=== PATIENT | male | born 1955 | race Caucasian/White ===

== ENCOUNTER 2017-04-07 06:30 | Inpatient (IN) | payer OTHER ==
--- NOTE | 2017-04-06 09:59 | GHP ---
[f rep st] PREOP HISTORY AND PHYSICAL DATE OF ADMISSION: 04/07/2017 PROBLEM: Left knee arthritis. HISTORY OF PRESENT ILLNESS: The patient is a 62-year-old man admitted for a left total knee arthropl asty. Over the last few years, he has had progressive pain, primarily on the medial aspect of his le ft knee. I have done 3 arthroscopic procedures on his left knee. He had 1 additional arthroscopic p rocedure before I started taking care of him. He has also tried viscosupplementation injections in t he left knee. He is now having sufficient pain and insufficient limitation of activity and function that he wants to go ahead with a left total knee arthroplasty. PAST MEDICAL HISTORY: Overall, he is in very good health. He has mild psoriasis. Six or 7 years ag o he underwent a cardiac ablation for atrial fibrillation. No history of DVT, hepatitis, sleep apnea or bleeding problems. CURRENT MEDICATIONS: One full-size aspirin per day. DRUG ALLERGIES: None. METAL ALLERGY: None. LATEX ALLERGY: Yes. SOCIAL HISTORY: The patient is retired. He does not smoke cigarettes. Occasionally drinks alcohol. He is single. FAMILY HISTORY: Positive for arthritis and cancer. PHYSICAL EXAMINATION: GENERAL: He is a healthy-appearing man. Height 6 feet 1 inch. Weight 174 po unds. BMI 23. EYES: Conjunctivae and sclerae are clear. Pupils are round and reactive. MOUTH: G ood oral hygiene. No loose teeth. CHEST: Clear. HEART: Regular rhythm. No murmurs. EXTREMITIES : Pertinent findings are limited to his left knee. He has a small effusion. Full extension and 120 degrees of flexion. He is tender along the medial joint line. He has mild pseudolaxity of his medi al collateral ligament. IMAGING: His films show advanced medial compartment degenerative arthritis in his left knee. He is tesn-[id number]. Mild degenerative changes are present in the lateral compartment and patellofemoral emmanuelle int. Varus alignment is present. IMPRESSION ON ADMISSION: 1. Left knee advanced medial compartment degenerative arthritis with varus deformity. 2. Treatment for psoriasis. 3. History of cardiac ablation for atrial fibrillation. 4. Right hip mild degenerative arthritis. PLAN: He will undergo a left total knee arthroplasty. The surgery has been described to him, includ ing the risks, complications, expectations and recovery time. I have stressed the importance of post operative physical therapy. He understands that a small percentage of people do not get a good resul t with a total knee replacement. He wishes to be an outpatient at [facility]. All h is questions have been answered, and he consents to surgery. /[id number]/MODL
[~2017-04-07 06:30] MED LIST: NS IV ONE; POVIDONE-IODINE 20 ML in SODIUM CL IRRIG SOLUTION 500 ML IRR ONE; ROPIVACAINE 0.2% 80 MG, EPINEPHrine 0.2 MG, KETOROLAC TROMETHAMINE 30 MG in BAG 0 ML IU ONE; TRANEXAMIC ACID 1 MG in NS 100 ML IV ONE; TRANEXAMIC ACID IV ONE
[2017-04-07] MEDS ORDERED: FAMOTIDINE 20 MG TAB PO ONE (06:50)
[2017-04-07] MEDS ORDERED: DEXAMETHASONE 4 MG/ML VIAL IVP ONE (06:50)
[2017-04-07] MEDS ORDERED: ceFAZolin 2 GM/SWFI 2 GM/20 ML SYR IVP ONE (06:50)
[2017-04-07] MEDS ORDERED: ACETAMINOPHEN 325 MG TAB PO ONE (06:50)
[2017-04-07] MEDS ORDERED: LR 1,000 ML IV ONE (06:56)
[2017-04-07] MEDS ORDERED: LIDOCAINE 1% 2 ML INJ ID PRN (06:56)
[2017-04-07] MEDS ORDERED: MIDAZOLAM 2 MG/2 ML VIAL IVP ONE (07:44)
[2017-04-07] MEDS ORDERED: ceFAZolin 1 GM/5 ML SYR ONE (07:46)
[2017-04-07] MEDS ORDERED: VANCOMYCIN 1 GM VIAL ONE (07:46)
--- NOTE | 2017-04-07 07:47 | PDANEPAE ---
ANE History of Present Illness djd L knee, s/f L TKA, potentially as an outpatient ANE Past Medical History - Cardiovascular History Hx Hypertension: No Hx Arrhythmias: Yes Hx Chest Pain: No Hx Coronary Artery / Peripheral Vascular Disease: No Hx CHF / Valvular Disease: No Hx Palpitations: Yes Cardiovascular History Comment: A flutter, ablation 2010. occasional flutter - Pulmonary History Hx COPD: No Hx Asthma/Reactive Airway Disease: No Hx Recent Upper Respiratory Infection: No Hx Oxygen in Use at Home: No Hx Sleep Apnea: No Sleep Apnea Screening Result - Last Documented: Negative - Neurologic History Hx Cerebrovascular Accident: No Hx Seizures: No Hx Dementia: No - Endocrine History Hx Diabetes: No - Renal History Hx Renal Disorders: No - Liver History Hx Hepatic Disorders: No - Neurological & Psychiatric Hx Hx Neurological and Psychiatric Disorders: No - Cancer History Hx Cancer: Yes Cancer History Comment: testicular, orchiectomy - Congenital Disorder History Hx Congenital Disorders: No - GI History Hx Gastrointestinal Disorders: No - Other Health History Other Health History: psoriasis flares up in winter - Chronic Pain History Chronic Pain: Yes (R hip) - Surgical History Prior Surgeries: R HIP IMPINGMENT X 2 FEB 2013. L KNEE CARTILeDGE REPAIR 2012. 2014 L KNEE CARTILEDGE REPAIR. 2014 EGD. 2014 L SHOULDER REPAIR. 2016 L KNEE CARTILEDGE REPAIR. 2016 COLONOSCOPY ANE Review of Systems Review of Systems: - Exercise capacity METS (RN): 4 METS ANE Patient History - Allergies Allergies/Adverse Reactions: latex Allergy (Verified 03/16/17 13:37) - Home Medications Home medications: home medication list seen and reviewed Home Medications: Aspirin [Aspirin 325 mg (*)] 325 mg PO DAILY 03/16/17 [Last Taken 03/30/17] Multivitamins [Multivitamin (*)] 1 each PO DAILY 03/16/17 [Last Taken 03/30/17] - NPO status NPO Status: no food or drink >8 hours NPO Since - Liquids (Date): 04/06/17 NPO Since - Liquids (Time): 19:00 NPO Since - Solids (Date): 04/06/17 NPO Since - Solids (Time): 19:00 - Anes Hx Anes Hx: no prior problems - Smoking Hx Smoking Status: Never smoked - Alcohol Use Alcohol Use: Occasionally - Family Anes Hx Family Anes Hx: none Family Hx Anesthesia Complications: none ANE Labs/Vital Signs - Labs - CBC WBC: reviewed and okay - Vital Signs Blood Pressure: 118/82 Heart Rate: 54 Respiratory Rate: 16 O2 Sat (%): 95 Height: 185.42 cm Weight: 83.007 kg ANE Physical Exam - Airway Mallampati Score: Class 1 Mouth exam: normal dental/mouth exam - Pulmonary Pulmonary: no respiratory distress - Cardiovascular Cardiovascular: regular rate and rhythym - ASA Status ASA Status: II ANE Anesthesia Plan Anesthesia Plan: spinal (R/B/A explained and pt agrees to proceed) Regional Anesthesia: adductor canal FNB (in PACU for post op pain)
--- NOTE | 2017-04-07 07:55 | PDHPUP ---
History & Physical Update H&P update statement: This history and physical update is based on an assessment of the patient which was completed after admission or registration (within 24 hours), but prior to the surgery/procedure. H&P update: H&P reviewed & patient examined, no change in patient's condition since H&P completed
[2017-04-07] MEDS ORDERED: PROPOFOL/EMULSION 500 MG/50 ML BOTTLE IV ONE ×2 (08:09→09:05)
[2017-04-07] MEDS ORDERED: fentaNYL 100 MCG/2 ML INJ ONE (08:09)
[2017-04-07] MEDS ORDERED: LIDOCAINE 2% JELLY 5 ML TUBE ONE (08:29)
[2017-04-07] MEDS ORDERED: ONDANSETRON 4 MG/2 ML VIAL ONE (08:50)
[2017-04-07] MEDS ORDERED: NALOXONE HCL 0.4 MG/ML INJ IVP PRN (09:36)
[2017-04-07] MEDS ORDERED: OXYCODONE/APAP 5/325 TAB PO PRN (09:36)
[2017-04-07] MEDS ORDERED: LR 500 ML IV PRN (09:36)
[2017-04-07] MEDS ORDERED: LABETALOL HCL 50 MG/10 ML SYR IVP PRN (09:36)
[2017-04-07] MEDS ORDERED: HYDROCODONE/APAP 5/325 TAB PO PRN (09:36)
[2017-04-07] MEDS ORDERED: ALBUTEROL 3 ML DEYVIAL IH PRN (09:36)
[2017-04-07] MEDS ORDERED: PROMETHAZINE HCL 25 MG/ML INJ IVP PRN ×2 (09:36→10:07)
[2017-04-07] MEDS ORDERED: ACETAMINOPHEN 500 MG TAB PO PRN (09:36)
[2017-04-07] MEDS ORDERED: METOCLOPRAMIDE 10 MG/2 ML VIAL IVP PRN ×2 (09:36→10:07)
[2017-04-07] MEDS ORDERED: fentaNYL 100 MCG/2 ML INJ IVP PRN (09:36)
[2017-04-07] MEDS ORDERED: DEXAMETHASONE 4 MG/ML VIAL IVP PRN (09:36)
[2017-04-07] MEDS ORDERED: MEPERIDINE 25 MG/ML SYR IVP PRN (09:36)
[2017-04-07] MEDS ORDERED: ONDANSETRON 4 MG/2 ML VIAL IVP PRN ×2 (09:36→10:07)
--- NOTE | 2017-04-07 10:00 | POSTOPPROG ---
Post Op Note Date of Operation: 04/07/17 Surgeon: Fausto Jacobs Mining Professionals: Jonathan Bhardwaj/Raman Montano Anesthesiologist: Sascha Oropeza Anesthesia: IV Sedation, Spinal Post-op Diagnosis: Left knee severe degenerative arthritis. Procedure: Left total knee arthroplasty. Inf/Abcess present in the surg proc area at time of surgery?: No EBL: 50-100 (Adductor canal block in PACU)
[2017-04-07] MEDS ORDERED: DIPHENOXYLATE/ATROPINE LOMOTIL 1 TAB PO PRN (10:07)
[2017-04-07] MEDS ORDERED: oxyCODONE IR 5 MG TAB PO PRN (10:07)
[2017-04-07] MEDS ORDERED: LACTULOSE 20 GM/30 ML UDCUP PO PRN (10:07)
[2017-04-07] MEDS ORDERED: diphenhydrAMINE 25 MG CAP PO PRN (10:07)
[2017-04-07] MEDS ORDERED: ONDANSETRON DISINTEGRATING 4 MG TAB PO PRN (10:07)
[2017-04-07] MEDS ORDERED: TEMAZEPAM 15 MG CAP PO PRN (10:07)
[2017-04-07] MEDS ORDERED: BISACODYL 10 MG SUPP PR PRN (10:07)
[2017-04-07] MEDS ORDERED: CYCLOBENZAPRINE 10 MG TAB PO PRN (10:07)
[2017-04-07] MEDS ORDERED: PROMETHAZINE HCL 25 MG SUPPR PR PRN (10:07)
[2017-04-07] MEDS ORDERED: MAGNESIUM HYDROXIDE 30 ML UDCUP PO PRN (10:07)
[2017-04-07] MEDS ORDERED: traMADol 50 MG TAB PO PRN (10:07)
[2017-04-07] MEDS ORDERED: POLYETHYLENE GLYCOL 3350 17 GM PKT PO PRN (10:07)
[2017-04-07] MEDS ORDERED: KETOROLAC 30 MG/1 ML SDV IVP PRN (10:07)
--- NOTE | 2017-04-07 10:22 | POSTANESTH ---
Post Anesthetic Evaluation Cardiovascular Status: Normal, Stable Respiratory Status: Normal, Stable Level of Consciousness/Mental Status: Can Participate in Eval Pain Control: Adequate, Prn Tx Ordered Nausea/Vomiting Control: Adequate, Prn Tx Ordered Complications Possibly Related to Anesthesia: None Noted
[2017-04-07] MEDS ORDERED: LR 1,000 ML IV SCH (10:30)
[2017-04-07] MEDS ORDERED: ceFAZolin 2 GM/DEXTROSE 100 ML IV SCH ×2 (10:45→17:00)
--- NOTE | 2017-04-07 11:45 | GDS ---
[f rep st] DISCHARGE SUMMARY ADMISSION DIAGNOSIS: Left knee severe degenerative arthritis. DISCHARGE DIAGNOSIS: Left knee severe degenerative arthritis. OPERATIONS PERFORMED: On 04/08/2017, a left total knee arthroplasty. POSTOPERATIVE COMPLICATIONS: None. CONDITION ON DISCHARGE: Improved. DESCRIPTION OF HOSPITAL COURSE: The patient was admitted to the hospital on the morning of surgery. His admission CBC was normal. The same day, under a combination of Marcaine spinal, IV sedation, and adductor canal block, he underwent a left total knee arthroplasty. Postoperatively, he was treated with multimodal DVT prophylaxes, including aspirin. Afternoon of surgery he was seen by Physical therapy. He demonstrated poor quadriceps control. His leg buckled at the bedside and flexed. He developed quite a bit of bleeding on his dressing. On the 1st postoperative day he still had a small area at the proximal end of his incision that was open. This area was sealed with Dermabond and Steri-Strips. DISPOSITION: He is discharged to his home. He will go to outpatient physical therapy. Continue aspirin 325 mg p.o. daily for 21 days. He has prescriptions for oxycodone and tramadol for pain control. I will see him back in the office on 04/17/2017. If any problems, he is to call me at the office. He will use his walker full-time and partial weight-bearing until he gains better quad control. He was discharged on 04/09/2017. /[id number]/MODL MTDD
--- NOTE | 2017-04-07 11:45 | GOP ---
[f rep st] OPERATIVE REPORT DATE OF OPERATION: 04/07/2017 SURGEON: Fausto Jacobs MD AIR QUALITY CHEMIST: Jonathan Bhardwaj CFA. Jerry Montano, PAC. ANESTHESIA: A combination of Marcaine spinal, IV sedation, and adductor canal block. ANESTHESIOLOGIST: Sascha Oropeza MD. PREOPERATIVE DIAGNOSIS: Left knee severe degenerative arthritis with varus deformity. POSTOPERATIVE DIAGNOSIS: Left knee severe degenerative arthritis with varus deformity. PROCEDURE PERFORMED: Left total knee arthroplasty, cemented, Abel and Nephew Journey II, posterior stabilized. FINDINGS: ESTIMATED BLOOD LOSS: The estimated blood loss following deflation of the tourniquet was about 100 m L or less. The sponge and needle counts were correct on 2 occasions. He was awakened from anesthesia, transferred [facility] and taken to PACU in satisfactory condition. There were no recognized intraoperative complications. In the PACU, for additional postoperative pain control, Dr. Oropeza performed an adductor canal block. Jonathan Bhardwaj and Raman Montano acted as surgical assistants. Their assistance was a medical necess ity for safe completion of the procedure. DESCRIPTION OF PROCEDURE: The patient was given 2 g of preoperative IV Ancef within 60 minutes of casey rgery. He also received IV tranexamic acid at a dose of 10 mg/kg. He was placed on the operating ro om table and given spinal anesthesia with Marcaine by Dr. Oropeza. He was then placed supine and given IV sedation. A Ratliff catheter was not used. He wore a KARENA stocking and SCD on the nonoperative leg . His left lower extremity was prepped with ChloraPrep from the upper thigh tourniquet to the tips o f the toes. It was draped free using sterile sheets, towels, stockinette, and Ioban plastic drape. The lower leg was wrapped with compressive Coban. The leg was exsanguinated with elevation and a 6-i nch compressive wrap, and the pneumatic tourniquet was inflated to 250 mmHg. The World Health Organization time-out was performed to verify the correct patient identity and the c orrect surgical side and site. The [place] time-out was also performed. The [employer] leg holding device was sterilely attached to the operating room table and used throughout the procedure to help position the knee. A straight midline incision was made centered on the patell a. Subcutaneous tissues were sharply divided, and hemostasis was obtained using electrocautery. A medial subcutaneous flap was developed, and the capsule and synovium were opened in a medial parapa tellar fashion. Extensive degenerative changes were present in his medial compartment and also in e patellofemoral joint. The femoral sulcus was eroded down to subchondral bone. The medial capsule and periosteum were elevated off the rim of the medial tibial plateau all the way around to the poste romedial corner. The medial collateral ligament was released enough to balance the medial side of e knee. In order to improve exposure, the patella was prepared first. The original thickness of the patella was measured. Peripheral osteophytes were removed. I cut a flat surface on the back of the patella. He was sized for a size 38 mm resurfacing component. I removed enough bone from the patella, such that the remaining bone plus the thickness of the patellar component recreated the original thickness of the patella. The composite thickness was 24 mm. The intramedullary alignment guide system was used to set up the distal femoral cut. The distal femu r was cut in 5 degrees of valgus. Because of a mild preoperative flexion contracture, I made a +2 mm cut on the distal femur. The sizing jig was used to determine proper femoral sizing. I shifted to size 6 jig anteriorly 1 mm in order to accommodate the size 6 without notching the anterior cortex. The 5-in-1 cutting block was applied, and the anterior and posterior condylar cuts and chamfer cuts w ere made. The final jig was used to remove the central portion of the distal femur to accommodate e posterior stabilized femoral component. I was careful to determine proper rotation by referencing off Whitesides line. Each cut was checked for accuracy before and after it was made. The femur was sized for a size 6 posterior stabilized component. The trial component was [facility] and was a good fit. Next, the tibia was prepared. The proximal tibia was cut using the extramedullary alignment guide sy stem. The cut was made in a few degrees of posterior slope. I was careful to achieve proper varus v algus alignment and proper rotation. The posterior compartment was cleared of meniscal remnants. Os teophytes were removed from the back of his femoral condyles. I checked the flexion and extension ga ps, and they were equal, balanced, and rectangular. The tibia was sized for a size 6 component. With the trial components in place, I selected a 10 mm p olyethylene posterior stabilized tibial insert. The knee came to full extension and flexed to 125 de grees. There was no overstuffing in flexion. His collateral ligaments were stable and balanced in 9 0 degrees of flexion and full extension. The trial patellar button was applied and tracking was chec ked. Tracking was excellent without any digital pressure. Then, 40 mL of the joint anesthetic cocktail was injected into the posterior capsule, the periarticul ar structures, the quadriceps muscle and tendon areas, and the subcutaneous tissues along with skin e dges. A second dose of IV tranexamic acid was given at a dose of 10 mg/kg. The surfaces were prepared for cementing. They were carefully cleaned with the pulsating lavage irri gation and thoroughly dried. The CarboJet device was used to blow dry the cancellous surfaces. A do uble batch of high viscosity methylmethacrylate cement with 2 g of powdered vancomycin added was mixe d. While it was still in a semi liquid state, all [address] components were cemented in place. Excess cemen t was removed before it hardened. The 10 mm trial tibial insert was re-tried and was the proper thickness. The actual component was in serted and locked into place. The knee was thoroughly irrigated 1 final time with a dilute Betadine solution. The tourniquet was deflated. Total tourniquet time was 53 minutes. The vastus medialis portion of the extensor mechanism was repaired with several interrupted figure-of -eight #2 FiberWire sutures. The capsule and synovium were closed first with multiple interrupted fi iulq-[id number] 0 PDS sutures, followed by a running #2 barbed Ethicon StrataFix PDO suture. The subcu taneous tissues were closed with a running 0 barbed Ethicon StrataFix Monoderm suture. The skin was closed with a running 3-0 barbed Ethicon StrataFix Monoderm subcuticular suture. The skin was sealed with half-inch Steri-Strips. The wound was covered with Xeroform gauze and flat 4 x 4s. The knee w as wrapped with Kerlix and 6-inch compressive wrap. A long-leg KARENA stocking and SCD were applied fol lowed by the cooling device. He wore a stocking and SCD on the opposite leg during the procedure. I used a size 6 cemented Abel and Nephew Oxinium posterior stabilized femoral component, size 6 ceme nted tibial base plate, a 10 mm posterior stabilized tibial insert, and a 38 mm cemented round all-po lyethylene resurfacing patellar component. /[id number]/MODL
--- NOTE | 2017-04-07 16:42 | ASMTCMCOM ---
CM Note CM Note Notes: Patient is POD #[address] Jacobs. Although he has discharge orders, PT/OT have not cleared him for home. When I spoke with patient this afternoon, he was still under the impression that he might go today. He was amenable to home PT, whether he leaves today or tomorrow. I confirmed address and phone and left a message for [facility] to see if they could accept. We will follow up with them tomorrow. Date Signed: 04/07/2017 04:41 PM Electronically Signed By:Jasmyn Babin RN
[2017-04-07] MEDS: ACETAMINOPHEN 325 MG TAB PO SCH ×3 (17:16→23:49)
[2017-04-07] MEDS: ceFAZolin 2 GM in D5W 100 ML IV SCH ×2 (17:18→23:50)
[2017-04-07] MEDS: FAMOTIDINE 20 MG TAB PO SCH (21:15)
[2017-04-07] MEDS: ASPIRIN 325 MG TAB PO SCH (21:15)
[2017-04-07] MEDS: SENNOSIDES/DOCUSATE SODIUM TAB PO SCH (21:16)
[2017-04-08 04:19] VITALS: O2SAT 97
[2017-04-08 04:34] LABS: HEMATOCRIT 34.2 % (40.0-51.0); HEMOGLOBIN 11.8 g/dL (13.7-17.5)
[2017-04-08] MEDS: ACETAMINOPHEN 325 MG TAB PO SCH ×2 (05:30→13:06)
[2017-04-08 07:54] VITALS: BP 120/72; PULSE 62; RESP 16; TEMP 97.9
[2017-04-08] MEDS: ASPIRIN 325 MG TAB PO SCH (08:50)
[2017-04-08] MEDS: FAMOTIDINE 20 MG TAB PO SCH (08:51)
[2017-04-08] MEDS: SENNOSIDES/DOCUSATE SODIUM TAB PO SCH (08:51)
[2017-04-08] MEDS ORDERED: FERROUS SULFATE 140 MG TAB.ER PO SCH (09:00)
--- NOTE | 2017-04-08 09:30 | SOAPPROG ---
SOAP Progress Note Assessment/Plan: Assessment: Last night, while walking in his room with a walker, he had an episode of the left leg giving out. He fell to the floor and forcibly flexed his left knee. He developed quite a bit of bleeding from his incision. His wound was reinforced. On exam today he has 1 inch area at the proximal end of his incision which is open. There is no active bleeding. The rest of the incision looks sealed. He has good active extension of his knee. His medial and lateral collateral ligaments are stable. Plan: We will sealed the upper end of the incision with Dermabond and reinforced with half-inch Steri-Strips. A new sterile compressive dressing will be applied. He can be discharged later this afternoon. He still feels like he has poor quad control. That is most likely due to the residual affect of his anesthesia. He will need uses walker carefully until he regains quad control. He has full extension today and 90 degrees of flexion. 04/08/17 09:28 Objective: Vital Signs Temp Pulse Resp BP Pulse Ox 36.6 C 62 16 120/72 97 04/08/17 07:53 04/08/17 07:53 04/08/17 07:53 04/08/17 07:53 04/08/17 07:53 Laboratory Results 04/08/17 04:15 04/07/17 04/08/17 04/09/17 05:59 05:59 05:59 Intake Total 3870 Output Total 1050 Balance 2820 ICD10 Worksheet Patient Problems: Problems Problem Status Onset Osteoarthritis of left knee Acute
[2017-04-08] MEDS ORDERED: FLU VACC QS 2017-18 (3YR+)/PF 0.5 ML SYR (FLUARIX QUAD) IM ONE (10:32)
--- NOTE | 2017-04-09 10:14 | ASMTCMCOM ---
CM Note CM Note Notes: Per Pepper hicks [facility], this pt will do outpatient PT per Dr Jacobs. No CM d/c needs identified. Date Signed: 04/09/2017 10:13 AM Electronically Signed By:DIA [place]
--- NOTE | 2017-04-09 13:23 | PDIAF ---
- Diagnosis Diagnosis: left knee OA Code Status: Full Code - Medication Management Discharge Medications: Medications to Continue on Transfer Aspirin [Aspirin 325 mg (*)] 325 mg PO DAILY 03/16/17 [Last Taken 03/30/17] Multivitamins [Multivitamin (*)] 1 each PO DAILY 03/16/17 [Last Taken 03/30/17] Acetaminophen [Tylenol ES 500 mg (*)] 500 mg PO Q6HRS PRN tab 04/07/17 [Last Taken Unknown] Ferrous Sulfate [Slow Fe 140 MG (*)] 140 mg PO DAILY #0 tab.er 04/07/17 [Last Taken Unknown] Ondansetron Odt [Zofran Odt 4 mg (*)] 4 mg PO Q4HRS PRN tab 04/07/17 [Last Taken Unknown] Sennosides/Docusate Sodium [Senokot-S] 1 - 2 tab PO BID tab 04/07/17 [Last Taken Unknown] oxyCODONE IR [Oxycodone Ir (*)] 5 - 10 mg PO Q3HRS PRN tab 04/07/17 [Last Taken Unknown] traMADol [Ultram 50 mg (*)] 50 mg PO Q6HRS PRN tab 04/07/17 [Last Taken Unknown ] Discharge Medications: Refer to the Discharge Home Medication list for PRN reason. PICC Care - Routine: N/A - Orders Services needed: Home Care, Physical Therapy Home Care Face to Face: I certify that this patient was under my care and that I had the required atax-js-lcip encounter meeting the encounter requirements on the discharge day. My findings support the fact that the patient is homebound as defined in Home Care Face to Face Continued: CMS Chapter 7 Medicare Benefits Manual 30.1.1 , The condition of the patient is such that there exists a normal inability to leave home and consequently, leaving home would require a considerable and taxing effort. Diet Recommendation: no restrictions on diet Diet Texture: Regular Texture Diet Ratliff: Not applicable Leonel Stockings Discontinue Date: 1 week Wound Care Instructions: keep clean and dry. You may shower. Activity/Weight Bearing Restrictions: as tolerated. Equipment: Zero knee while in bed as tolerated. - Follow Up Care Current Providers and Referrals: Hima Christiansen MD [Primary Care Provider] - Fausto Jacobs MD [Medical Doctor] - 04/17/17
--- NOTE | 2017-04-09 15:08 | ASDISCHSUM ---
Discharge Information Plan Status:Home with Home Health Medically Cleared to Leave: Discharge Date:04/08/2017 03:05 PM CM D/C Disposition:Home Health Service ADT D/C Disposition:Home Health Service Projected Discharge Date:04/08/2017 03:05 PM Transportation at D/C:Friend Discharge Delay Reason: Follow-Up Date:04/08/2017 03:05 PM Discharge Slot: Final Diagnosis: Placement Information Patient Contact Information Contact Name:SHELLEY Relationship: Address: Work Phone: City: [facility] Phone: State/[employer] Group Code: Email: Financial Information Financial Class:HMO and PPO Plans Primary Plan Desc:[facility] Primary Plan Number:[id number] Secondary Plan Desc: Secondary Plan Number: Assessment Information [facility] CM Progress Note CM Note CM Note Notes: Patient is POD #[address] Jacobs. Although he has discharge orders, PT/OT have not cleared him for home. When I spoke with patient this afternoon, he was still under the impression that he might go today. He was amenable to home PT, whether he leaves today or tomorrow. I confirmed address and phone and left a message for [facility] to see if they could accept. We will follow up with them tomorrow. Date Signed: 04/07/2017 04:41 PM Electronically Signed By:Jasmyn Babin RN [facility] CM Progress Note CM Note CM Note Notes: Per Pepper hicks [facility], this pt will do outpatient PT per Dr Jacobs. No CM d/c needs identified. Date Signed: 04/09/2017 10:13 AM Electronically Signed By:DIA [place] Intervention Information
--- NOTE | 2017-04-09 16:39 | ASMTCMCOM ---
CM Note CM Note Notes: Received a call from this patient one day post discharge. Patient expressed he would like [facility], did not order home care upon d/c. Tati Hallman with Case Management spoke with Joshua at Dr. Jacbos's office, he is okay with [facility] now, [place] to place orders. Spoke with Pepper at [facility] re: referral, they were aware of this patient from admission and are able to see on Thursday, 04/10. Case Management did not send [facility] referral via [email or web address] as patient has already been discharged. [facility] able to access meds and discharge instructions through [employer] Spoke with patient re: above, he is in agreement with d/c plan and start of care on 04/10. Date Signed: 04/09/2017 04:39 PM Electronically Signed By:Rosaura Epps RN
== END 2017-04-08 15:05 | disposition home health service (06) | DRG 470 ==
LOC: F3N 06:30
PROVIDERS: ADMIT Orthopaedic Surgery; ATTEND Orthopaedic Surgery
PROC: 0SRD0J9 Replacement of Left Knee Joint with Synthetic Substitute, Cemented, Open Approach (ICD-10-PCS; principal; 2017-04-07 08:15)
DX: M17.0 Bilateral primary osteoarthritis of knee (principal)
CPT/HCPCS: 97110-GP; 97116-GP; 97161-GP; 97165-GO; 97530-GP; 97535-GO; C1713; J0171; J0690; J1100; J1885; J2250; J2405; J2704; J2795; J3010; J3370